=== PATIENT | female | born 1955 | race Caucasian/White ===

== ENCOUNTER 2023-08-24 04:42 | Emergency (ER) | payer OTHER ==
[2023-08-24 04:54] VITALS: TEMP 97.5; BMI 19.4
[2023-08-24] MEDS ORDERED: ACETAMINOPHEN 325 MG TABLET (FP) PO ONE (06:12)
[2023-08-24] MEDS ORDERED: ACETAMINOPHEN 325 MG TABLET (FP) ONE (06:45)
[2023-08-24 08:53] VITALS: BP 139/60; PULSE 71; RESP 20
== END 2023-08-24 17:52 ==
LOC: JER 04:42
DX: S00.03XA Contusion of scalp, initial encounter (principal); M25.571 Pain in right ankle and joints of right foot; R51.9 Headache, unspecified; S80.01XA Contusion of right knee, initial encounter; S80.02XA Contusion of left knee, initial encounter; W01.0XXA Fall on same level from slipping, tripping and stumbling without subsequent striking against object, initial encounter; W22.8XXA Striking against or struck by other objects, initial encounter; Y92.129 Unspecified place in nursing home as the place of occurrence of the external cause
CPT/HCPCS: 70450-TC; 71045-TC-FY; 72125-TC; 72170-TC-FY; 73610-TC-RT-FY; 73630-TC-RT-FY; 93005; 93010; 99285-25

== ENCOUNTER 2023-10-18 15:15 | Inpatient (IN) | payer OTHER ==
[2023-10-18 16:04] VITALS: BMI 18.7
[2023-10-18 16:57] LABS: BASO % 1.1 % (0-2.0); EOS % 0.6 % (0-4.5); HEMATOCRIT 37.8 % (32.4-45.2); HEMOGLOBIN 12.3 GM/dL (10.7-15.3); MCH 32.7 pg (25.7-33.7); MCHC 32.5 g/dl (32.0-36.0); MEAN CELL VOLUME 100.6 fl (80-96); MEAN PLT VOLUME 9.4 fl (7.5-11.1); MONO % 12.1 % (3.8-10.2); NEUT % 64.2 % (42.8-82.8); PLATELET COUNT 61 10^3/uL (134-434); RBC 3.76 M/mm3 (3.60-5.2); RDW 17.8 % (11.6-15.6); WHITE BLOOD COUNT 4.1 K/mm3 (4.0-10.0)
[2023-10-18 17:04] LABS: INR 1.14 (0.83-1.09); PROTHROMBIN TIME (PATIENT) 13.2 SEC (9.7-13.0)
[2023-10-18 17:04] LABS: VENOUS BASE EXCESS 1.3 mmol/L (-2-2); VENOUS PCO2 47.2 mmHg (38-52); VENOUS PH 7.376 (7.310-7.410)
[2023-10-18 17:07] LABS: ACTIVATED PTT 30.9 SECONDS (25.2-36.5)
[2023-10-18 17:20] LABS: POTASSIUM 3.4 mmol/L (3.5-5.1)
[2023-10-18 17:22] LABS: CALCIUM 9.2 mg/dL (8.5-10.1)
[2023-10-18 17:23] LABS: ALBUMIN 2.7 g/dl (3.4-5.0); BLOOD UREA NITROGEN 19.6 mg/dL (7-18)
[2023-10-18 17:26] LABS: CREATININE 2.5 mg/dL (0.55-1.3)
[2023-10-18 17:27] LABS: BILIRUBIN,TOTAL 1.1 mg/dL (0.2-1); TOT PROT 5.9 g/dl (6.4-8.2)
[2023-10-18] MEDS ORDERED: ASPIRIN 300 MG SUPP.RECT RC ONE (18:10)
[2023-10-18] MEDS: ASPIRIN 300 MG SUPP.RECT RC ONE (18:14)
[2023-10-18 18:16] LABS: EPI CELLS 20 /uL (0-25.1); HYALINE CASTS 1 /uL (0-3.1); PH,URINE 5.5 (5.0-8.0); URINE APPEARANCE CLEAR; URINE BACTERIA 19 /uL (0-1359); URINE BILIRUBIN 1+ (NEGATIVE); URINE COLOR DK YELLOW; URINE GLUCOSE (UA) NEGATIVE (NEGATIVE); URINE KETONE TRACE (NEGATIVE); URINE LEUK ESTERASE 1+ (NEGATIVE); URINE NITRITE NEGATIVE (NEGATIVE); URINE PROTEIN 3+ (NEGATIVE); URINE WBC 26 /uL (0-25.8)
[2023-10-18] MEDS ORDERED: VANCOMYCIN 1 GRAM (PRE-DOCKED) 1,000 MG/250 ML BAG IVPB ONE (18:36)
[2023-10-18] MEDS: VANCOMYCIN 1,000 MG in DEXTROSE 5%-WATER - 250 ML IVPB ONE (18:55)
[2023-10-18] MEDS ORDERED: PIPERACILLIN/TAZOB 4.5 GM 4.5 GM/100 ML BAG IVPB ONE (19:20)
[2023-10-18] MEDS: PIPERACILLIN/TAZOBACTAM 4.5 GM VIAL IVPB ONE (19:50)
[2023-10-18 21:39] LABS: URINE RBC 24.2 /uL (0-23.9)
[2023-10-19] MEDS ORDERED: PIPERACILLIN/TAZOB 2.25 GM 2.25 GM/50 ML BAG IVPB ONE (01:59)
[2023-10-19] MEDS: PIPERACILLIN/TAZOB 2.25 GM 2.25 GM in DEXTROSE 5%-WATER - 50 ML IVPB SCH ×3 (02:09→18:42)
[2023-10-19 05:51] LABS: BASO % 1.1 % (0-2.0); EOS % 0.2 % (0-4.5); HEMATOCRIT 38.3 % (32.4-45.2); HEMOGLOBIN 12.6 GM/dL (10.7-15.3); LYMPH % 21.5 % (8-40); MCH 33.1 pg (25.7-33.7); MCHC 32.9 g/dl (32.0-36.0); MEAN CELL VOLUME 100.6 fl (80-96); MEAN PLT VOLUME 9.9 fl (7.5-11.1); NEUT % 67.2 % (42.8-82.8); PLATELET COUNT 59 10^3/uL (134-434); RBC 3.81 M/mm3 (3.60-5.2); RDW 17.7 % (11.6-15.6); WHITE BLOOD COUNT 6.8 K/mm3 (4.0-10.0)
[2023-10-19 05:57] LABS: POTASSIUM 3.6 mmol/L (3.5-5.1)
[2023-10-19 05:58] LABS: CALCIUM 9.2 mg/dL (8.5-10.1); MAGNESIUM 1.9 mg/dL (1.8-2.4)
[2023-10-19 05:59] LABS: BLOOD UREA NITROGEN 24.6 mg/dL (7-18)
[2023-10-19 06:02] LABS: CREATININE 2.8 mg/dL (0.55-1.3); PHOSPHOROUS 2.4 mg/dL (2.5-4.9)
[2023-10-19] MEDS: FUROSEMIDE 40 MG/4 ML INJECTABLE VIAL IVPUSH SCH (10:56)
[2023-10-19] MEDS: LIDOCAINE 4% PATCH TP SCH (10:56)
[2023-10-19] MEDS: LIDOCAINE PATCH REMOVAL MC SCH (21:45)
[2023-10-20 07:45] LABS: POTASSIUM 3.5 mmol/L (3.5-5.1)
[2023-10-20 07:48] LABS: ALBUMIN 2.8 g/dl (3.4-5.0); BLOOD UREA NITROGEN 40.4 mg/dL (7-18); CALCIUM 9.6 mg/dL (8.5-10.1); MAGNESIUM 1.9 mg/dL (1.8-2.4)
[2023-10-20 07:49] LABS: BASO % 0.3 % (0-2.0); HEMATOCRIT 36.8 % (32.4-45.2); HEMOGLOBIN 12.1 GM/dL (10.7-15.3); LYMPH % 12.1 % (8-40); MCH 33.1 pg (25.7-33.7); MCHC 32.8 g/dl (32.0-36.0); MEAN CELL VOLUME 100.8 fl (80-96); MONO % 11.5 % (3.8-10.2); NEUT % 76.1 % (42.8-82.8); PLATELET COUNT 55 10^3/uL (134-434); RBC 3.65 M/mm3 (3.60-5.2); RDW 17.4 % (11.6-15.6); WHITE BLOOD COUNT 7.1 K/mm3 (4.0-10.0)
[2023-10-20 07:50] LABS: CREATININE 3.7 mg/dL (0.55-1.3)
[2023-10-20 07:52] LABS: BILIRUBIN,TOTAL 1.5 mg/dL (0.2-1); TOT PROT 5.7 g/dl (6.4-8.2)
[2023-10-20] MEDS ORDERED: SODIUM CHLORIDE 250 ML IV PRN (12:37)
[2023-10-21 07:45] LABS: POTASSIUM 3.8 mmol/L (3.5-5.1)
[2023-10-21 07:48] LABS: CALCIUM 9.6 mg/dL (8.5-10.1)
[2023-10-21 07:49] LABS: BLOOD UREA NITROGEN 57.3 mg/dL (7-18)
[2023-10-21 07:52] LABS: CREATININE 4.5 mg/dL (0.55-1.3)
[2023-10-21] MEDS: VITAMIN B COMP W-C 1 EA TABLET (NEPHRO-VITE) PO SCH (10:46)
[2023-10-21] MEDS: POLYETHYLENE GLYCOL (HEALTHYLAX) 3350 17 GM PACKET PO SCH (13:29)
[2023-10-21] MEDS: PANTOPRAZOLE SODIUM 40 MG VIAL IVPUSH SCH (13:37)
[2023-10-23 12:21] LABS: BASO % 0.2 % (0-2.0); HEMATOCRIT 33.8 % (32.4-45.2); HEMOGLOBIN 11.1 GM/dL (10.7-15.3); LYMPH % 7.3 % (8-40); MCH 32.8 pg (25.7-33.7); MCHC 32.9 g/dl (32.0-36.0); MEAN CELL VOLUME 99.8 fl (80-96); MONO % 8.1 % (3.8-10.2); NEUT % 84.4 % (42.8-82.8); PLATELET COUNT 64 10^3/uL (134-434); RBC 3.39 M/mm3 (3.60-5.2); RDW 17.6 % (11.6-15.6); WHITE BLOOD COUNT 7.2 K/mm3 (4.0-10.0)
[2023-10-23 12:40] LABS: POTASSIUM 3.3 mmol/L (3.5-5.1)
[2023-10-23 12:41] LABS: INR 1.44 (0.83-1.09); PROTHROMBIN TIME (PATIENT) 16.6 SEC (9.7-13.0)
[2023-10-23 12:42] LABS: BLOOD UREA NITROGEN 37.4 mg/dL (7-18); CALCIUM 9.2 mg/dL (8.5-10.1)
[2023-10-23 12:43] LABS: ALBUMIN 2.5 g/dl (3.4-5.0)
[2023-10-23 12:46] LABS: CREATININE 3.2 mg/dL (0.55-1.3)
[2023-10-23 12:48] LABS: BILIRUBIN,TOTAL 1.7 mg/dL (0.2-1); TOT PROT 5.2 g/dl (6.4-8.2)
[2023-10-23] MEDS ORDERED: SODIUM CHLORIDE 250 ML IV PRN (17:58)
[2023-10-23] MEDS: METOPROLOL TARTRATE 25 MG TABLET (FP) PO SCH (22:15)
[2023-10-24] MEDS: ASPIRIN COATED 81 MG TABLET.EC PO SCH (10:26)
[2023-10-24 11:07] LABS: BASO % 0.1 % (0-2.0); EOS % 0.1 % (0-4.5); HEMATOCRIT 34.3 % (32.4-45.2); HEMOGLOBIN 11.7 GM/dL (10.7-15.3); LYMPH % 11.5 % (8-40); MCH 33.8 pg (25.7-33.7); MCHC 34.2 g/dl (32.0-36.0); MEAN CELL VOLUME 98.6 fl (80-96); MEAN PLT VOLUME 9.8 fl (7.5-11.1); MONO % 11.9 % (3.8-10.2); NEUT % 76.4 % (42.8-82.8); PLATELET COUNT 63 10^3/uL (134-434); RBC 3.48 M/mm3 (3.60-5.2); RDW 17.2 % (11.6-15.6); WHITE BLOOD COUNT 7.5 K/mm3 (4.0-10.0)
[2023-10-24 11:30] LABS: POTASSIUM 3.9 mmol/L (3.5-5.1)
[2023-10-24 11:32] LABS: CALCIUM 9.5 mg/dL (8.5-10.1)
[2023-10-24 11:33] LABS: ALBUMIN 2.7 g/dl (3.4-5.0); BLOOD UREA NITROGEN 46.9 mg/dL (7-18)
[2023-10-24 11:35] LABS: BILIRUBIN,DIRECT 1.2 mg/dL (0.0-0.2)
[2023-10-24 11:36] LABS: CREATININE 3.9 mg/dL (0.55-1.3)
[2023-10-24 11:37] LABS: BILIRUBIN,TOTAL 1.9 mg/dL (0.2-1); TOT PROT 5.7 g/dl (6.4-8.2)
[2023-10-25] MEDS: PANTOPRAZOLE 40 MG TABLET PO SCH (10:19)
[2023-10-25] MEDS: FUROSEMIDE 40 MG TABLET (FP) PO SCH (10:19)
[2023-10-26] MEDS ORDERED: SODIUM CHLORIDE 250 ML IV PRN (09:00)
[2023-10-26] MEDS: SACUBITRIL/VALSARTAN 24 MG-26 MG TABLET PO SCH (21:39)
[2023-10-27 23:20] VITALS: RESP 18
[2023-10-28 09:52] LABS: BASO % 0.3 % (0-2.0); EOS % 0.4 % (0-4.5); HEMATOCRIT 34.6 % (32.4-45.2); HEMOGLOBIN 11.8 GM/dL (10.7-15.3); LYMPH % 17.5 % (8-40); MCH 34.1 pg (25.7-33.7); MEAN CELL VOLUME 100.4 fl (80-96); MEAN PLT VOLUME 11.2 fl (7.5-11.1); MONO % 11.1 % (3.8-10.2); NEUT % 70.7 % (42.8-82.8); PLATELET COUNT 97 10^3/uL (134-434); RBC 3.45 M/mm3 (3.60-5.2); RDW 17.5 % (11.6-15.6); WHITE BLOOD COUNT 5.8 K/mm3 (4.0-10.0)
[2023-10-28 10:24] LABS: POTASSIUM 5.2 mmol/L (3.5-5.1)
[2023-10-28 10:27] LABS: ALBUMIN 2.6 g/dl (3.4-5.0); BLOOD UREA NITROGEN 38.6 mg/dL (7-18); CALCIUM 9.7 mg/dL (8.5-10.1)
[2023-10-28 10:31] LABS: BILIRUBIN,TOTAL 1.6 mg/dL (0.2-1); TOT PROT 5.7 g/dl (6.4-8.2)
[2023-10-28 11:16] LABS: CREATININE 3.5 mg/dL (0.55-1.3)
[2023-10-28 18:52] VITALS: BP 130/75; PULSE 79; TEMP 98.3
== END 2023-10-28 19:02 | DRG 280 ==
LOC: JER 15:15 → JERBED 17:05 → J4S 10-19 07:29
PROVIDERS: ADMIT Internal Medicine; ATTEND Family Medicine
PROC: 5A1D70Z Performance of Urinary Filtration, Intermittent, Less than 6 Hours Per Day (ICD-10-PCS; principal; 2023-10-20)
DX: I13.2 Hypertensive heart and chronic kidney disease with heart failure and with stage 5 chronic kidney disease, or end stage renal disease (principal); G93.41 Metabolic encephalopathy; I21.4 Non-ST elevation (NSTEMI) myocardial infarction; N18.6 End stage renal disease; J18.9 Pneumonia, unspecified organism; I50.33 Acute on chronic diastolic (congestive) heart failure; J44.0 Chronic obstructive pulmonary disease with (acute) lower respiratory infection; R18.8 Other ascites; K56.609 Unspecified intestinal obstruction, unspecified as to partial versus complete obstruction; Z99.2 Dependence on renal dialysis; Z86.718 Personal history of other venous thrombosis and embolism; I27.20 Pulmonary hypertension, unspecified; F03.90 Unspecified dementia, unspecified severity, without behavioral disturbance, psychotic disturbance, mood disturbance, and anxiety; D69.6 Thrombocytopenia, unspecified; Z95.0 Presence of cardiac pacemaker; E21.3 Hyperparathyroidism, unspecified; F41.9 Anxiety disorder, unspecified; D64.9 Anemia, unspecified; E87.6 Hypokalemia; K59.00 Constipation, unspecified; R01.1 Cardiac murmur, unspecified; R11.10 Vomiting, unspecified
CPT/HCPCS: 0241U-QW; 36415; 70450-TC; 71045-TC-FY; 71250-TC; 74018-TC-FY; 74019-TC-FY; 74176-TC; 80048; 80053; 80061; 81003; 82140; 82248; 82550; 82728; 82803; 82962; 83036; 83540; 83550; 83605; 83735; 84100; 84443; 84484; 85025; 85610; 85730; 86704; 86803; 86850; 86900; 86901; 87040; 87086; 87340; 87517; 93005; 93010; 93306-TC; 93970-TC; 93990-TC; 99285-25

== ENCOUNTER 2023-12-25 03:25 | Inpatient (IN) | payer OTHER ==
[2023-12-25] MEDS ORDERED: ACETAMINOPHEN INJECTION 100 ML IVPB ONE (04:07)
[2023-12-25] MEDS ORDERED: DIPHTH,PERTUSS(ACELL),TET 0.5 ML DISP.SYRIN IM ONE (04:07)
[2023-12-25] MEDS: ACETAMINOPHEN 1000 MG/100 ML BAG IVPB ONE (04:11)
[2023-12-25] MEDS: DIPHTH,PERTUSS(ACELL),TET 0.5 ML DISP.SYRIN IM ONE (04:12)
[2023-12-25 04:16] LABS: BASO % 0.7 % (0-2.0); EOS % 0.2 % (0-4.5); HEMATOCRIT 22.1 % (32.4-45.2); HEMOGLOBIN 7.5 GM/dL (10.7-15.3); LYMPH % 13.7 % (8-40); MCH 33.6 pg (25.7-33.7); MCHC 33.8 g/dl (32.0-36.0); MEAN CELL VOLUME 99.5 fl (80-96); MEAN PLT VOLUME 8.5 fl (7.5-11.1); MONO % 8.1 % (3.8-10.2); NEUT % 77.3 % (42.8-82.8); PLATELET COUNT 105 10^3/uL (134-434); RBC 2.22 M/mm3 (3.60-5.2); RDW 22.5 % (11.6-15.6); WHITE BLOOD COUNT 8.8 K/mm3 (4.0-10.0)
[2023-12-25 04:31] LABS: INR 1.16 (0.83-1.09); PROTHROMBIN TIME (PATIENT) 13.1 SEC (9.7-13.0)
[2023-12-25 04:34] LABS: ACTIVATED PTT 32.4 SECONDS (25.2-36.5); CHLORIDE 101 mmol/L (98-107); POTASSIUM 4.5 mmol/L (3.5-5.1); SODIUM 135 mmol/L (136-145)
[2023-12-25 04:36] LABS: CALCIUM 8.6 mg/dL (8.5-10.1)
[2023-12-25 04:37] LABS: ALBUMIN 1.9 g/dl (3.4-5.0); ANION GAP 8 mmol/L (4-13); BLOOD UREA NITROGEN 31.7 mg/dL (7-18); CO2 25 mmol/L (21-32); GLUCOSE,RANDOM 101 mg/dL (74-106)
[2023-12-25 04:40] LABS: CREATININE 2.7 mg/dL (0.55-1.3); SGOT/AST 27 U/L (15-37)
[2023-12-25 04:42] LABS: TOT PROT 4.8 g/dl (6.4-8.2)
[2023-12-25 04:43] LABS: ALK PHOS 91 U/L (45-117)
[2023-12-25 05:01] LABS: SGPT/ALT < 6 U/L (13-61)
[2023-12-25 07:00] LABS: PLATELET ESTIMATE ADEQUATE
[2023-12-25] MEDS: VITAMIN B COMP W-C 1 EA TABLET (NEPHRO-VITE) PO SCH (10:30)
[2023-12-25] MEDS: PANTOPRAZOLE SODIUM 40 MG VIAL IVPUSH SCH (10:30)
[2023-12-25] MEDS: METOPROLOL TARTRATE 25 MG TABLET (FP) PO SCH (10:30)
[2023-12-25 12:09] LABS: IRON SERUM 66 ug/dL (50-175); TOTAL IRON BINDING CAPACITY 102 ug/dL (250-450)
[2023-12-25 12:54] LABS: BASO % 0.1 % (0-2.0); HEMATOCRIT 19.6 % (32.4-45.2); LYMPH % 11.7 % (8-40); MCH 33.3 pg (25.7-33.7); MCHC 33.1 g/dl (32.0-36.0); MEAN CELL VOLUME 100.7 fl (80-96); MEAN PLT VOLUME 8.1 fl (7.5-11.1); MONO % 4.9 % (3.8-10.2); NEUT % 83.3 % (42.8-82.8); PLATELET COUNT 92 10^3/uL (134-434); RBC 1.94 M/mm3 (3.60-5.2); RDW 22.7 % (11.6-15.6); WHITE BLOOD COUNT 7.5 K/mm3 (4.0-10.0)
[2023-12-25 14:12] LABS: HEMOGLOBIN 6.5 GM/dL (10.7-15.3)
[2023-12-26] MEDS ORDERED: oxyCODONE HCL 5 MG TABLET ONE (06:02)
[2023-12-26] MEDS: oxyCODONE HCL 5 MG TABLET PO ONE (06:04)
[2023-12-26 09:07] LABS: BASO % 0.3 % (0-2.0); EOS % 0.3 % (0-4.5); HEMATOCRIT 18.8 % (32.4-45.2); LYMPH % 18.9 % (8-40); MCH 33.1 pg (25.7-33.7); MCHC 34.9 g/dl (32.0-36.0); MEAN CELL VOLUME 94.9 fl (80-96); MEAN PLT VOLUME 8.2 fl (7.5-11.1); MONO % 11.1 % (3.8-10.2); NEUT % 69.4 % (42.8-82.8); PLATELET COUNT 95 10^3/uL (134-434); RBC 1.99 M/mm3 (3.60-5.2); RDW 22.7 % (11.6-15.6); WHITE BLOOD COUNT 6.6 K/mm3 (4.0-10.0)
[2023-12-26 09:26] LABS: HEMOGLOBIN 6.6 GM/dL (10.7-15.3)
[2023-12-26] MEDS ORDERED: SODIUM CHLORIDE 250 ML IV PRN (11:21)
[2023-12-26] MEDS: PANTOPRAZOLE SODIUM 40 MG VIAL IVPUSH SCH ×2 (16:10→17:13)
[2023-12-26] MEDS: METOPROLOL TARTRATE 25 MG TABLET (FP) PO SCH (16:10)
[2023-12-26] MEDS: VITAMIN B COMP W-C 1 EA TABLET (NEPHRO-VITE) PO SCH (16:10)
[2023-12-26] MEDS: POLYETHYLENE GLYCOL (HEALTHYLAX) 3350 17 GM PACKET PO SCH ×2 (16:10→17:17)
[2023-12-26] MEDS: EPOETIN ALFA-EPBX 4,000 UNIT/ML VIAL SQ ONE (17:12)
[2023-12-27] MEDS: ACETAMINOPHEN 325 MG TABLET (FP) PO PRN (06:25)
[2023-12-27 07:23] LABS: BASO % 0.3 % (0-2.0); HEMATOCRIT 25.8 % (32.4-45.2); LYMPH % 17.4 % (8-40); MCH 32.2 pg (25.7-33.7); MCHC 34.8 g/dl (32.0-36.0); MEAN CELL VOLUME 92.7 fl (80-96); MEAN PLT VOLUME 8.2 fl (7.5-11.1); MONO % 8.9 % (3.8-10.2); NEUT % 73.4 % (42.8-82.8); PLATELET COUNT 100 10^3/uL (134-434); RBC 2.79 M/mm3 (3.60-5.2); RDW 20.8 % (11.6-15.6); WHITE BLOOD COUNT 6.9 K/mm3 (4.0-10.0)
[2023-12-27 07:38] LABS: CHLORIDE 102 mmol/L (98-107); POTASSIUM 3.9 mmol/L (3.5-5.1); SODIUM 137 mmol/L (136-145)
[2023-12-27 07:41] LABS: ALBUMIN 2.1 g/dl (3.4-5.0); CALCIUM 8.6 mg/dL (8.5-10.1)
[2023-12-27 07:43] LABS: ANION GAP 3 mmol/L (4-13); BLOOD UREA NITROGEN 18.6 mg/dL (7-18); CO2 31 mmol/L (21-32); GLUCOSE,RANDOM 82 mg/dL (74-106)
[2023-12-27 07:45] LABS: CREATININE 1.9 mg/dL (0.55-1.3)
[2023-12-27 07:46] LABS: BILIRUBIN,TOTAL 1.2 mg/dL (0.2-1); SGOT/AST 35 U/L (15-37); SGPT/ALT < 6 U/L (13-61); TOT PROT 5.1 g/dl (6.4-8.2)
[2023-12-27 07:48] LABS: ALK PHOS 109 U/L (45-117)
[2023-12-27] MEDS ORDERED: SODIUM CHLORIDE 250 ML IV PRN (17:16)
[2023-12-28 10:34] LABS: BASO % 0.3 % (0-2.0); EOS % 0.1 % (0-4.5); HEMATOCRIT 26.4 % (32.4-45.2); LYMPH % 15.6 % (8-40); MCH 32.3 pg (25.7-33.7); MEAN CELL VOLUME 94.9 fl (80-96); MEAN PLT VOLUME 8.6 fl (7.5-11.1); MONO % 7.7 % (3.8-10.2); NEUT % 76.3 % (42.8-82.8); PLATELET COUNT 122 10^3/uL (134-434); RBC 2.78 M/mm3 (3.60-5.2); RDW 21.5 % (11.6-15.6); WHITE BLOOD COUNT 9.3 K/mm3 (4.0-10.0)
[2023-12-28 10:46] LABS: POTASSIUM 4.3 mmol/L (3.5-5.1)
[2023-12-28] MEDS: EPOETIN ALFA-EPBX 3,000 UNIT/ML VIAL IVPUSH ONE (10:46)
[2023-12-28 10:47] LABS: CALCIUM 8.8 mg/dL (8.5-10.1)
[2023-12-28 10:48] LABS: BLOOD UREA NITROGEN 28.6 mg/dL (7-18)
[2023-12-28 10:51] LABS: CREATININE 2.3 mg/dL (0.55-1.3)
[2023-12-28 11:07] LABS: ANISOCYTOSIS 2+; MACROCYTOSIS 2+
[2023-12-28] MEDS: VANCOMYCIN/WATER FOR INJ (PEG) 1,000 MG/200 ML BAG IVPB ONE (22:15)
[2023-12-30] MEDS ORDERED: SODIUM CHLORIDE 250 ML IV PRN ×2 (19:35→22:00)
[2023-12-30] MEDS: SACUBITRIL/VALSARTAN 24 MG-26 MG TABLET PO SCH ×2 (21:24→23:54)
[2023-12-30] MEDS: METOPROLOL TARTRATE 25 MG TABLET (FP) PO SCH (23:54)
[2023-12-31] MEDS ORDERED: EPOETIN ALFA-EPBX 10,000 UNIT/ML VIAL IVPUSH ONE (00:01)
[2023-12-31] MEDS: PANTOPRAZOLE SODIUM 40 MG VIAL IVPUSH SCH (10:26)
[2023-12-31] MEDS: VITAMIN B COMP W-C 1 EA TABLET (NEPHRO-VITE) PO SCH (10:26)
[2023-12-31] MEDS: EPOETIN ALFA-EPBX 10,000 UNIT/ML VIAL IVPUSH ONE (10:56)
[2023-12-31 14:38] LABS: BF WBC & OTHER NUCLEATED CELLS 1694 /mm3
[2023-12-31 15:11] LABS: BODY FLUID BASOPHIL 3 %; BODY FLUID MESOTHELIAL 5 %; BODY FLUID MONOCYTE 15 %
[2023-12-31 15:50] LABS: POTASSIUM 4.1 mmol/L (3.5-5.1)
[2023-12-31 15:52] LABS: CALCIUM 9.9 mg/dL (8.5-10.1)
[2023-12-31 15:53] LABS: ALBUMIN 2.1 g/dl (3.4-5.0)
[2023-12-31 15:56] LABS: CREATININE 1.9 mg/dL (0.55-1.3)
[2023-12-31 15:57] LABS: BILIRUBIN,TOTAL 1.6 mg/dL (0.2-1)
[2023-12-31] MEDS: POLYETHYLENE GLYCOL (HEALTHYLAX) 3350 17 GM PACKET PO SCH (18:33)
[2023-12-31] MEDS: FUROSEMIDE 40 MG TABLET (FP) PO SCH (18:34)
[2024-01-01] MEDS: AMINO ACIDS/PROTEIN HYDROLYS 30 ML LIQUID.PKT PO SCH (09:55)
[2024-01-01] MEDS: CEFTRIAXONE 2 GM in DEXTROSE 5%-WATER 100 ML IVPB SCH (10:21)
[2024-01-01] MEDS: ALBUMIN HUMAN 25% 100 ML VIAL IV SCH (13:53)
[2024-01-01 15:10] LABS: BODY FLUID ALBUMIN 1.7 g/dL (Not Estab.)
[2024-01-01] MEDS: ACETAMINOPHEN 325 MG TABLET (FP) PO PRN (17:45)
[2024-01-02] MEDS ORDERED: SODIUM CHLORIDE 250 ML IV PRN (08:14)
[2024-01-02] MEDS: EPOETIN ALFA-EPBX 10,000 UNIT/ML VIAL IVPUSH ONE (09:34)
[2024-01-02 11:18] LABS: BASO % 0.1 % (0-2.0); EOS % 0.5 % (0-4.5); HEMATOCRIT 26.4 % (32.4-45.2); HEMOGLOBIN 8.6 GM/dL (10.7-15.3); LYMPH % 9.5 % (8-40); MCH 32.5 pg (25.7-33.7); MCHC 32.5 g/dl (32.0-36.0); MEAN CELL VOLUME 100.1 fl (80-96); MEAN PLT VOLUME 10.2 fl (7.5-11.1); MONO % 9.5 % (3.8-10.2); NEUT % 80.4 % (42.8-82.8); PLATELET COUNT 69 10^3/uL (134-434); RBC 2.64 M/mm3 (3.60-5.2); RDW 22.5 % (11.6-15.6); WHITE BLOOD COUNT 8.7 K/mm3 (4.0-10.0)
[2024-01-02 11:37] LABS: POTASSIUM 4.3 mmol/L (3.5-5.1)
[2024-01-02 11:39] LABS: BLOOD UREA NITROGEN 51.5 mg/dL (7-18); CALCIUM 9.4 mg/dL (8.5-10.1)
[2024-01-02 11:43] LABS: CREATININE 2.9 mg/dL (0.55-1.3)
[2024-01-02 11:44] LABS: BILIRUBIN,TOTAL 1.1 mg/dL (0.2-1)
[2024-01-02 11:58] LABS: ALBUMIN 2.6 g/dl (3.4-5.0)
[2024-01-02 12:04] LABS: ANISOCYTOSIS 1+; MACROCYTOSIS 1+
[2024-01-02] MEDS ORDERED: RAPID SEQUENCE INTUBATION KIT NR ONE (15:06)
[2024-01-03 11:27] VITALS: PULSE 67
[2024-01-03] MEDS ORDERED: SODIUM CHLORIDE 250 ML IV PRN (11:59)
[2024-01-03] MEDS: ALBUMIN HUMAN 25% 12.5 GM/50 ML VIAL IV SCH (13:12)
[2024-01-03 14:21] VITALS: BP 81/65; RESP 15; TEMP 98.5
[2024-01-03 15:21] VITALS: BMI 16.4
[2024-01-04] MEDS ORDERED: EPOETIN ALFA-EPBX 10,000 UNIT/ML VIAL SQ ONE (11:59)
== END 2024-01-03 17:45 | DRG 811 ==
LOC: JER 03:25 → JERBED 04:37 → J4W 08:28 → J2W 12-30 13:37
PROVIDERS: ADMIT Internal Medicine; ATTEND Internal Medicine
PROC: 30233N1 Transfusion of Nonautologous Red Blood Cells into Peripheral Vein, Percutaneous Approach (ICD-10-PCS; 2023-12-25)
PROC: 0W9G3ZZ Drainage of Peritoneal Cavity, Percutaneous Approach (ICD-10-PCS; principal; 2023-12-31)
PROC: 5A1D70Z Performance of Urinary Filtration, Intermittent, Less than 6 Hours Per Day (ICD-10-PCS; 2023-12-31)
PROC: 5A1D70Z Performance of Urinary Filtration, Intermittent, Less than 6 Hours Per Day (ICD-10-PCS; 2023-12-31)
PROC: 5A1D70Z Performance of Urinary Filtration, Intermittent, Less than 6 Hours Per Day (ICD-10-PCS; 2023-12-31)
PROC: 5A1D70Z Performance of Urinary Filtration, Intermittent, Less than 6 Hours Per Day (ICD-10-PCS; 2023-12-31)
DX: D64.9 Anemia, unspecified (principal); E43 Unspecified severe protein-calorie malnutrition; K65.2 Spontaneous bacterial peritonitis; N18.6 End stage renal disease; I13.2 Hypertensive heart and chronic kidney disease with heart failure and with stage 5 chronic kidney disease, or end stage renal disease; R64 Cachexia; Z68.1 Body mass index [BMI] 19.9 or less, adult; R18.8 Other ascites; I50.22 Chronic systolic (congestive) heart failure; S01.81XA Laceration without foreign body of other part of head, initial encounter; E21.3 Hyperparathyroidism, unspecified; F41.9 Anxiety disorder, unspecified; E78.5 Hyperlipidemia, unspecified; I27.20 Pulmonary hypertension, unspecified; I25.2 Old myocardial infarction; F03.90 Unspecified dementia, unspecified severity, without behavioral disturbance, psychotic disturbance, mood disturbance, and anxiety; J44.9 Chronic obstructive pulmonary disease, unspecified; K76.0 Fatty (change of) liver, not elsewhere classified; Z95.0 Presence of cardiac pacemaker; Z99.2 Dependence on renal dialysis; W06.XXXA Fall from bed, initial encounter; Y92.092 Bedroom in other non-institutional residence as the place of occurrence of the external cause; Y99.9 Unspecified external cause status; Z86.718 Personal history of other venous thrombosis and embolism
CPT/HCPCS: 36415; 36430; 70450-TC; 70486-TC; 71045-TC-FY; 72125-TC; 72170-TC-FY; 73090-TC-RT-FY; 73110-TC-LT-FY; 73110-TC-RT-FY; 73130-TC-LT-FY; 73130-TC-RT-FY; 76705-TC; 80053; 82042; 82272; 82607; 82728; 82746; 82945; 82962; 83540; 83550; 83615; 83986; 84157; 84484; 85025; 85610; 85730; 86850; 86900; 86901; 86922; 87040; 87070; 87075; 87205; 87340; 88108; 88305-TC; 90715; 93005; 93010; 99285-25; G0480; J0131; P9038; P9047; P9058; Q5106